=== PATIENT | male | born 1945 | race Two or more races ===

== ENCOUNTER 2017-06-23 13:40 | Outpatient (CLI) | payer OTHER ==
[2017-06-24] MEDS ORDERED: FORTAMET1000 MG PO (14:35)
[2017-06-24] MEDS ORDERED: AMARIL (14:36)
[2017-06-24] MEDS ORDERED: TRICOR145 MG PO (14:36)
== END 2017-06-23 14:19 | disposition home or self-care (01) ==
LOC: LAB 13:40
DX: C18.5 Malignant neoplasm of splenic flexure (principal); R59.0 Localized enlarged lymph nodes; R97.0 Elevated carcinoembryonic antigen [CEA]

== ENCOUNTER 2017-06-24 14:04 | Inpatient (IN) | payer OTHER ==
[~2017-06-24] VITALS: Ht 162.6 cm; Wt 68.0 kg
[2017-06-24] MEDS ORDERED: FORTAMET1000 MG PO (14:35)
[2017-06-24] MEDS ORDERED: TRICOR145 MG PO (14:36)
[2017-06-24] MEDS ORDERED: AMARIL (14:36)
[2017-07-01] MEDS ORDERED: FAMOTIDINE20 MG PO (14:18)
[2017-07-01] MEDS ORDERED: OXYC1TAB9 PO (14:18)
== END 2017-07-01 15:04 | disposition home or self-care (01) | DRG 331 ==
LOC: O/R 06-28 09:25 → SURG 06-28 14:03
PROVIDERS: Surgery
PROC: 0DTP4ZZ Resection of Rectum, Percutaneous Endoscopic Approach (ICD-10-PCS; 2017-06-28)
PROC: 07TC4ZZ Resection of Pelvis Lymphatic, Percutaneous Endoscopic Approach (ICD-10-PCS; 2017-06-28)
PROC: 0DJD8ZZ Inspection of Lower Intestinal Tract, Via Natural or Artificial Opening Endoscopic (ICD-10-PCS; 2017-06-28)
PROC: 0DTN4ZZ Resection of Sigmoid Colon, Percutaneous Endoscopic Approach (ICD-10-PCS; principal; 2017-06-28 18:30)
DX: C18.5 Malignant neoplasm of splenic flexure (principal); R59.0 Localized enlarged lymph nodes; E11.9 Type 2 diabetes mellitus without complications; D50.0 Iron deficiency anemia secondary to blood loss (chronic); E78.2 Mixed hyperlipidemia

== ENCOUNTER 2017-07-24 12:28 | Inpatient (IN) | payer OTHER ==
[~2017-07-24] VITALS: Ht 162.6 cm; Wt 60.8 kg
[~2017-07-24 12:28] MED LIST: AMARIL; FAMOTIDINE20 MG PO; FORTAMET1000 MG PO; OXYC1TAB9 PO; TRICOR145 MG PO
[2017-07-28] MEDS ORDERED: FORTAMET1000 MG PO (12:31)
[2017-07-28] MEDS ORDERED: PYRIDOXINE HCL100 M1 PO (12:31)
[2017-07-28] MEDS ORDERED: INTEGRA F CAPS1 EACH PO (12:31)
[2017-07-28] MEDS ORDERED: ACID CONTROLLER20 MG PO (12:31)
[2017-07-28] MEDS ORDERED: FENOFIBRATE145 MG PO (12:31)
[2017-07-28] MEDS ORDERED: GLIMEPIRIDE2 MG PO (12:31)
[2017-07-28] MEDS ORDERED: Neurin-Sl Tablet Sl SL (12:31)
== END 2017-07-28 13:59 | disposition home or self-care (01) | DRG 439 ==
LOC: ER 12:28 → SURG 07-25 08:55 → SEC-K 07-25 08:55 → SURG 07-25 09:59
PROC: 4A033R1 Measurement of Arterial Saturation, Peripheral, Percutaneous Approach (ICD-10-PCS; principal; 2017-07-25)
DX: K85.80 Other acute pancreatitis without necrosis or infection (principal); K56.690 Other partial intestinal obstruction; C18.5 Malignant neoplasm of splenic flexure; Z90.49 Acquired absence of other specified parts of digestive tract; E78.00 Pure hypercholesterolemia, unspecified; E11.65 Type 2 diabetes mellitus with hyperglycemia; D50.0 Iron deficiency anemia secondary to blood loss (chronic)